=== PATIENT | female | born 1985 | race African-American/Black ===

== ENCOUNTER → 2016-06-06 | Outpatient (CLI) | payer OTHER, SELFPAY ==
--- NOTE | 2016-06-06 16:42 | CR ---
EXAMINATION: Lumbar spine HISTORY: Pain COMPARISON: None TECHNIQUE: AP and lateral views FINDINGS: The lumbar spinal alignment is normal. The vertebral body heights and disc spaces appear w ell-maintained. There is no fracture or dislocation. The SI joints are symmetric. Bone mineralizatio n is normal. IMPRESSION: Grossly unremarkable lumbar spine.
== END ==
LOC: MW.CHRC 15:02
PROVIDERS: ATTEND Family Medicine
DX: M54.5 Low back pain (principal)
CPT/HCPCS: 72100; 72100-26

== ENCOUNTER 2016-06-17 16:12 | Emergency (ER) | payer SELFPAY ==
[2016-06-17 16:48] VITALS: BP 124/83
== END 2016-06-17 16:50 | disposition left against medical advice (07) ==
LOC: MW.ED 16:12
DX: Z53.21 Procedure and treatment not carried out due to patient leaving prior to being seen by health care provider (principal)

== ENCOUNTER → 2016-06-19 | Outpatient (CLI) | payer OTHER, SELFPAY | END | disposition home or self-care (01) | LOC: MW.CHFP 09:17 | PROVIDERS: ATTEND Physician Assistant | DX: R76.11 Nonspecific reaction to tuberculin skin test without active tuberculosis (principal); T50.A95A Adverse effect of other bacterial vaccines, initial encounter | CPT/HCPCS: 36415; 86480 ==

== ENCOUNTER → 2016-06-30 | Outpatient (CLI) | payer OTHER, SELFPAY | LOC: MW.CHFP 14:15 | PROVIDERS: ATTEND Physician Assistant | DX: R76.11 Nonspecific reaction to tuberculin skin test without active tuberculosis (principal) | CPT/HCPCS: 36415; 84450; 84460 ==

== ENCOUNTER 2017-10-01 05:43 | Inpatient (IN) | payer OTHER ==
[2017-10-01] MEDS ORDERED: Misoprostol 200 MCG Tab PO PRN (06:25)
[2017-10-01] MEDS ORDERED: Water For Irrigation,Sterile 1,000 ML Container IRR PRN (06:25)
[2017-10-01] MEDS ORDERED: Methylergonovine 0.2 MG/1 ML Amp IM PRN (06:25)
[2017-10-01] MEDS ORDERED: Nalbuphine 10 MG/1 ML Vial IVPUSH PRN (06:25)
[2017-10-01] MEDS ORDERED: Carboprost Tromethamine 250 MCG/1 ML Amp IM PRN (06:25)
[2017-10-01] MEDS ORDERED: Lidocaine 1% 50 ML MDV INJECT PRN (06:25)
[2017-10-01] MEDS ORDERED: Tranexamic Acid 1,000 MG in Sodium Chloride 0.9% 100 ML IV PRN (06:25)
[2017-10-01] MEDS ORDERED: Sodium Chloride 0.9% 10 ML Syringe FLUSH PRN (06:25)
[2017-10-01] MEDS ORDERED: Butorphanol 1 MG/ML SDV IVPUSH PRN (06:25)
[2017-10-01] MEDS ORDERED: Sodium Chloride 0.9% 2.5 ML Syringe FLUSH PRN (06:25)
[2017-10-01] MEDS ORDERED: Oxytocin/0.9 % Sodium Chloride 30 UNIT/500 ML BAG IV SCH ×2 (06:30→13:30)
--- NOTE | 2017-10-01 08:46 | PCM.LDHP ---
L&D History of Present Illness - General Date of Service: 10/01/17 Admit Problem/Dx: Patient Status Order with Admit Dx/Problem 10/01/17 05:51 Patient Status [ADT] Routine 10/01/17 06:26 Patient Status [ADT] Routine Admission Diagnosis/Problem Admission Diagnosis/Problem 10/01/17 08:40 31yo EDC 09/26/2017 40 5/7wks O+, RI, GBS neg. SROM clear this am 0200. Source of Information: Patient History Limitations: Reports: No Limitations - History of Present Illness Improves with: Reports: None Worsens with: Reports: None Associated Symptoms: Reports: N - Related Data Allergies/Adverse Reactions: Allergies Allergy/AdvReac Type Severity Reaction Status Date / Time No Known Allergies Allergy Verified 10/01/17 06:11 Home Medications: Home Meds PNV95/Ferrous Fumarate/FA [Prenavite Tablet] 1 each PO DAILY 07/25/17 [History] Past Medical History HEENT History: Reports: None Cardiovascular History: Reports: Angina, Other (See Below) Other Cardiovascular History: atypical angina Respiratory History: Reports: TB, Other (See Below) Other Respiratory History: latent TB; patient states her TB test was negative 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: - Infectious Disease History Infectious Disease History: Reports: TB, Other (See Below) Other Infectious Disease History: Latent TB noted on patient's chart; when asked patient states her TB test was negative - Past Surgical History HEENT Surgical History: Reports: Oral Surgery, Other (See Below) Other HEENT Surgeries/Procedures: wisdom teeth extraction Cardiovascular Surgical History: Reports: None Respiratory Surgical History: Reports: None Social & Family History - Family History Cardiac: Reports: Hypertension OBGYN: Reports: Endocrine/Metabolic: Reports: Diabetes, type II - Tobacco Use Smoking Status *Q: Never Smoker - Caffeine Use Caffeine Use: Reports: Coffee, Tea - Recreational Drug Use Recreational Drug Use: No H&P Review of Systems - Review of Systems: Review Of Systems: See Below General: Reports: No Symptoms HEENT: Reports: No Symptoms Pulmonary: Reports: No Symptoms Cardiovascular: Reports: No Symptoms Gastrointestinal: Reports: No Symptoms Genitourinary: Reports: No Symptoms Musculoskeletal: Reports: No Symptoms Skin: Reports: No Symptoms Psychiatric: Reports: No Symptoms Neurological: Reports: No Symptoms Hematologic/Lymphatic: Reports: No Symptoms Immunologic: Reports: No Symptoms L&D Exam - Exam Exam: See Below - Vital Signs Weight: 72.121 kg - OB Specific Contraction Intensity: Mild Movement: Active Heart Tones: Present Heart Rate (FHR) Variability: Moderate (6-25 bmp) Presentation: Vertex Estimated Weight: 3100 - Exam General: Alert, Cooperative HEENT: Hearing Intact Lungs: Clear to Auscultation, Normal Respiratory Effort Cardiovascular: Regular Rate, Regular Rhythm, Normal S1, Normal S2 GI/Abdominal Exam: Soft, Non-Tender Rectal Exam: Deferred Genitourinary: Cervical dilitation Back Exam: Normal Inspection, Full Range of Motion Extremities: Normal Inspection, Normal Range of Motion, Non-Tender, No Pedal Edema, Normal Capillary Refill Skin: Warm, Dry, Intact Neurological: Cranial Nerves Intact, Reflexes Equal Bilateral, Strength Equal Bilateral, Normal Gait, Normal Speech, Normal Tone Psychiatric: Alert, Normal Affect, Normal Mood - Patient Data Lab Results Last 24 hrs: Laboratory Results - last 24 hr 10/01/17 10/01/17 10/01/17 Range/Units 06:00 06:45 06:45 WBC 14.03 H (4.0-11.0) K/uL RBC 3.44 L (4.30-5.90) M/uL Hgb 10.0 L (12.0-16.0) g/dL Hct 30.3 L (36.0-46.0) % MCV 88.1 (80.0-98.0) fL MCH 29.1 (27.0-32.0) pg MCHC 33.0 (31.0-37.0) g/dL RDW Std Deviation 42.6 (28.0-62.0) fl RDW Coeff of Clara 13 (11.0-15.0) % Plt Count 112 L (150-400) K/uL MPV 11.30 (7.40-12.00) fL Nucleated RBC % 0.2 /100WBC Nucleated RBCs # 0 K/uL Membrane Rupture POSITIVE Blood Type O POSITIVE Antibody Screen NEGATIVE Result Diagrams: 10/01/17 06:45 - Problem List (1) Supervision of normal IUP (intrauterine ) in primigravida SNOMED Code(s): 23059788, 978737588, 771195379, 988856982 ICD Code: Z34.00 - ENCNTR FOR SUPRVSN OF NORMAL FIRST , UNSP TRIMESTER Status: Acute Priority: High Current Visit: Yes Qualifiers: Trimester: third trimester Qualified Code(s): Z34.03 - Encounter for supervision of normal first , third trimester Problem List Initiated/Reviewed/Updated: Yes Orders Last 24hrs: Active Orders 24 hr Category Date Time Status Patient Status [ADT] Routine ADT 10/01/17 06:26 Active Heart Tones [RC] CONTINUOUS Care 10/01/17 06:26 Active Non Stress Test [RC] PER UNIT ROUTINE Care 10/01/17 05:51 Active May Shower [RC] ASDIRECTED Care 10/01/17 06:26 Active Notify Provider [RC] PRN Care 10/01/17 06:26 Active Up ad Staci [RC] ASDIRECTED Care 10/01/17 05:51 Active Vaginal Exam [RC] Click to Edit Care 10/01/17 05:51 Active Vital Signs [RC] PER UNIT ROUTINE Care 10/01/17 05:51 Active Regular Diet [DIET] Diet 10/01/17 Breakfast Active Butorphanol [Stadol] Med 10/01/17 06:25 Active 1 mg IVPUSH Q1H PRN Carboprost Tromethamine [Hemabate DS] Med 10/01/17 06:25 Active 250 mcg IM ASDIRECTED PRN Lactated Ringers [Ringers, Lactated] 1,000 ml Med 10/01/17 06:30 Active IV ASDIRECTED Lidocaine 1% [Xylocaine 1%] Med 10/01/17 06:25 Active 50 ml INJECT .ONCE PRN Methylergonovine [Methergine] Med 10/01/17 06:25 Active 0.2 mg IM ASDIRECTED PRN Misoprostol [Cytotec] Med 10/01/17 06:25 Active 200 mcg PO .ONCE PRN Nalbuphine [Nubain] Med 10/01/17 07:30 Active 10 mg IVPUSH Q1H PRN Oxytocin/0.9 % Sodium Chloride [Oxytocin 30 Unit/500 ML Med 10/01/17 06:30 Active -NS] 30 unit in 500 ml IV TITRATE Sodium Chloride 0.9% [Saline Flush] Med 10/01/17 06:25 Active 10 ml FLUSH ASDIRECTED PRN Sodium Chloride 0.9% [Saline Flush] Med 10/01/17 06:25 Active 2.5 ml FLUSH ASDIRECTED PRN Tranexamic Acid [Cyklokapron] 1,000 mg Med 10/01/17 06:25 Active Sodium Chloride 0.9% [Normal Saline] 100 ml IV ONETIME Water For Irrigation,Sterile [Sterile Water for Med 10/01/17 06:25 Active Irrigation] 1,000 ml IRR ASDIRECTED PRN Scalp Electrode [WOMSER] Per Unit Routine Oth 10/01/17 06:26 Ordered Peripheral IV Insertion Adult [OM.PC] Routine Oth 10/01/17 06:26 Ordered Resuscitation Status Routine Resus Stat 10/01/17 05:51 Ordered Medication Orders Butorphanol Tartrate (Stadol) 1 mg IVPUSH Q1H PRN PRN Reason: Pain Carboprost Tromethamine (Hemabate Ds) 250 mcg IM ASDIRECTED PRN PRN Reason: Post Hemorrhage Tranexamic Acid 1,000 mg/ (Sodium Chloride) 110 mls @ 660 mls/hr IV ONETIME PRN PRN Reason: Bleeding Lactated Ringer's (Ringers, Lactated) 1,000 mls @ 150 mls/hr IV ASDIRECTED LO Oxytocin/Sodium Chloride (Oxytocin 30 Unit/500 Ml-Ns) 30 unit in 500 mls @ 999 mls/hr IV TITRATE LO Lidocaine HCl (Xylocaine 1%) 50 ml INJECT .ONCE PRN PRN Reason: Laceration repair Methylergonovine Maleate (Methergine) 0.2 mg IM ASDIRECTED PRN PRN Reason: Post Hemorrhage Misoprostol (Cytotec) 200 mcg PO .ONCE PRN PRN Reason: Post Hemorrhage Nalbuphine HCl (Nubain) 10 mg IVPUSH Q1H PRN PRN Reason: Pain (severe 7-10) Sodium Chloride (Saline Flush) 10 ml FLUSH ASDIRECTED PRN PRN Reason: Keep Vein Open Sodium Chloride (Saline Flush) 2.5 ml FLUSH ASDIRECTED PRN PRN Reason: Keep Vein Open Sterile Water (Sterile Water For Irrigation) 1,000 ml IRR ASDIRECTED PRN PRN Reason: delivery Assessment/Plan Comment:: Labor A: 31yo EDC 09/26/2017 40 5/7wks O+, RI, GBS neg. SROM clear this am 0200. VSS, AF, Reactive NST. P: Pt walking and will be rechecked in a few hours or prn, Will start pitocin if not fernanda and making cervical change. GBS neg. Dr pulliam updated on pt status.
[2017-10-01] MEDS ORDERED: Misoprostol 25 MCG (1/4 of 100 MCG) Tab VAG PRN (13:16)
[2017-10-01] MEDS ORDERED: Terbutaline 1 MG/ML SDV SUBCUT PRN (13:16)
[2017-10-01] MEDS ORDERED: Misoprostol 25 MCG (1/4 of 100 MCG) Tab VAG SCH (13:30)
[2017-10-01] MEDS: Lactated Ringers 1,000 ML IV SCH ×2 (14:17→19:53)
[2017-10-02] MEDS: Lactated Ringers 1,000 ML IV SCH ×3 (03:15→10:02)
[2017-10-02] MEDS: Nalbuphine 10 MG/ML 10 ML MDV IVPUSH PRN ×2 (03:18→07:30)
[2017-10-02] MEDS ORDERED: Ampicillin 2 GM in Sodium Chloride 0.9% 100 ML IV ONE (04:39)
[2017-10-02] MEDS ORDERED: Ampicillin 1 GM in Sodium Chloride 0.9% 50 ML IV SCH (08:45)
--- NOTE | 2017-10-02 10:00 | PCM.PREANE ---
Preanesthetic Assessment - Anesthesia/Transfusion/Family Hx Anesthesia History: Prior Anesthesia Without Reaction Family History of Anesthesia Reaction: No Transfusion History: No Prior Transfusion(s) - Review of Systems General: No Symptoms Pulmonary: No Symptoms Cardiovascular: No Symptoms Gastrointestinal: No Symptoms, Nausea Other: Reports: None - Physical Assessment Height: 1.55 m Weight: 72.121 kg ASA Class: 2 Mental Status: Alert & Oriented x3 Dentition: Reports: Normal Dentition - Lab Values: Laboratory Last Values WBC 14.03 K/uL (4.0-11.0) H 10/01/17 06:45 RBC 3.44 M/uL (4.30-5.90) L 10/01/17 06:45 Hgb 10.0 g/dL (12.0-16.0) L 10/01/17 06:45 Hct 30.3 % (36.0-46.0) L 10/01/17 06:45 MCV 88.1 fL (80.0-98.0) 10/01/17 06:45 MCH 29.1 pg (27.0-32.0) 10/01/17 06:45 MCHC 33.0 g/dL (31.0-37.0) 10/01/17 06:45 RDW Std Deviation 42.6 fl (28.0-62.0) 10/01/17 06:45 RDW Coeff of Clara 13 % (11.0-15.0) 10/01/17 06:45 Plt Count 112 K/uL (150-400) L 10/01/17 06:45 MPV 11.30 fL (7.40-12.00) 10/01/17 06:45 Nucleated RBC % 0.2 /100WBC 10/01/17 06:45 Nucleated RBCs # 0 K/uL 10/01/17 06:45 Membrane Rupture POSITIVE 10/01/17 06:00 Blood Type O POSITIVE 10/01/17 06:45 Antibody Screen NEGATIVE 10/01/17 06:45 - Allergies Allergies/Adverse Reactions: Allergies Allergy/AdvReac Type Severity Reaction Status Date / Time No Known Allergies Allergy Verified 10/01/17 06:11 - Acknowledgements Anesthesia Type Planned: Epidural Pt an Appropriate Candidate for the Planned Anesthesia: Yes Alternatives and Risks of Anesthesia Discussed w Pt/Guardian: Yes Pt/Guardian Understands and Agrees with Anesthesia Plan: Yes PreAnesthesia Questionnaire HEENT History: Reports: None Cardiovascular History: Reports: Angina, Other (See Below) Other Cardiovascular History: atypical angina Respiratory History: Reports: TB, Other (See Below) Other Respiratory History: latent TB; patient states her TB test was negative 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: - Infectious Disease History Infectious Disease History: Reports: TB, Other (See Below) Other Infectious Disease History: Latent TB noted on patient's chart; when asked patient states her TB test was negative - Past Surgical History HEENT Surgical History: Reports: Oral Surgery, Other (See Below) Other HEENT Surgeries/Procedures: wisdom teeth extraction Cardiovascular Surgical History: Reports: None Respiratory Surgical History: Reports: None - SUBSTANCE USE Smoking Status *Q: Never Smoker Recreational Drug Use History: No - HOME MEDS Home Medications: Home Meds PNV95/Ferrous Fumarate/FA [Prenavite Tablet] 1 each PO DAILY 07/25/17 [History] - CURRENT (IN HOUSE) MEDS Current Meds: Current Medications Butorphanol Tartrate (Stadol) 1 mg IVPUSH Q1H PRN PRN Reason: Pain Carboprost Tromethamine (Hemabate Ds) 250 mcg IM ASDIRECTED PRN PRN Reason: Post Hemorrhage Tranexamic Acid 1,000 mg/ (Sodium Chloride) 110 mls @ 660 mls/hr IV ONETIME PRN PRN Reason: Bleeding Lactated Ringer's (Ringers, Lactated) 1,000 mls @ 150 mls/hr IV ASDIRECTED LO Last Admin: 10/02/17 09:03 Dose: 999 mls/hr Oxytocin/Sodium Chloride (Oxytocin 30 Unit/500 Ml-Ns) 30 unit in 500 mls @ 999 mls/hr IV TITRATE LO Oxytocin/Sodium Chloride (Oxytocin 30 Unit/500 Ml-Ns) 30 unit in 500 mls @ 2 mls/hr IV TITRATE LO; Protocol Last Titration: 10/01/17 22:58 Dose: 20 munits/min, 20 mls/hr Ampicillin Sodium 1 gm/ Sodium (Chloride) 50 mls @ 100 mls/hr IV Q4H LO Last Admin: 10/02/17 09:12 Dose: 100 mls/hr Lidocaine HCl (Xylocaine 1%) 50 ml INJECT .ONCE PRN PRN Reason: Laceration repair Methylergonovine Maleate (Methergine) 0.2 mg IM ASDIRECTED PRN PRN Reason: Post Hemorrhage Misoprostol (Cytotec) 200 mcg PO .ONCE PRN PRN Reason: Post Hemorrhage Misoprostol (Cytotec) 25 mcg VAG .ONCE LO Misoprostol (Cytotec) 25 mcg VAG Q4H PRN PRN Reason: Cervical Ripening Nalbuphine HCl (Nubain) 10 mg IVPUSH Q1H PRN PRN Reason: Pain (severe 7-10) Last Admin: 10/02/17 07:30 Dose: 10 mg Sodium Chloride (Saline Flush) 10 ml FLUSH ASDIRECTED PRN PRN Reason: Keep Vein Open Sodium Chloride (Saline Flush) 2.5 ml FLUSH ASDIRECTED PRN PRN Reason: Keep Vein Open Sterile Water (Sterile Water For Irrigation) 1,000 ml IRR ASDIRECTED PRN PRN Reason: delivery Terbutaline Sulfate (Brethine) 0.25 mg SUBCUT ASDIRECTED PRN PRN Reason: Tacysystole Discontinued Medications Ampicillin Sodium 2 gm/ Sodium (Chloride) 100 mls @ 200 mls/hr IV ONETIME ONE Stop: 10/02/17 05:08 Last Admin: 10/02/17 04:56 Dose: 200 mls/hr Fentanyl/Bupivacaine HCl (Seedazrx-Xpspl-Ps 2 Mcg/Ml-0.125%) Confirm Administered Dose 100 mls @ as directed EP .STK-MED ONE Stop: 10/02/17 09:07 Nalbuphine HCl (Nubain) 10 mg IVPUSH Q1H PRN PRN Reason: Pain (severe 7-10)
[2017-10-02] MEDS ORDERED: Benzocaine/Menthol 20%-0.5% Spray 78 GM Cannister TOP PRN (12:02)
[2017-10-02] MEDS ORDERED: Ibuprofen 400 MG Tab PO PRN (12:02)
[2017-10-02] MEDS ORDERED: Docusate Sodium 100 MG Cap PO PRN (12:02)
[2017-10-02] MEDS ORDERED: Bisacodyl 10 MG Supp RECTAL PRN (12:02)
[2017-10-02] MEDS ORDERED: Acetaminophen 500 MG Tab PO PRN ×2 (12:02)
[2017-10-02] MEDS ORDERED: Lanolin 100% Cream 7 GM Tube TOP PRN (12:02)
[2017-10-02] MEDS ORDERED: oxyCODONE 5 MG Tab PO PRN (12:02)
[2017-10-02] MEDS ORDERED: Witch Hazel Medicated Pads 40/Jar TOP PRN (12:02)
--- NOTE | 2017-10-02 12:10 | PCM.DEL ---
L & D Note - General Info Date of Service: 10/02/17 Mother's Due Date: 09/26/17 - Delivery Note Labor: Spontaneous Delivery Outcome: Livebirth Infant Delivery Method: Spontaneous Vaginal Delivery-Single Infant Delivery Mode: Spontaneous Presentation: Vertex Nuchal Cord: Present Anesthesia Type: Epidural Amniotic Fluid Description: Clear Episiotomy Type: None Laceration: 1st Degree (bilat side wall) Suture type: Vicryl Suture size: 3-0 Placenta: Intact, Spontaneous Cord: 3 Vessels Estimated Blood Loss: 200 Resuscitation Needed: No Score 1 min: 9 Score 5 min: 9 Second Stage Interventions: Reports: Pushing, Pulls Own Legs Back Delivery Comments (Free Text/Narrative):: Dr Coleman Resident assisted with delivery. of viable girl. Head delivered with good pushing, nuchal x1 noted and baby delivered through, shoulders and body followed easily. Infant to mothers abdomen with RN at for evaluation. Spont cry. Delayed cord clamping. Pitocin to IVF, Cord clamped x2 and cut by FOB. Cord blood collected. Placenta delivered grossly intact. Inspection noted bilat sidewall lac that were repaired with 3-0 satinder, homeostasis obtained. Bimanual normal. Infant APGARS 9/9, Wt: 6lb 3oz, EBL 200cc. 1st deg sidewall lac with repair. Mother and baby left in stable condition. Induction Criteria - Augmentation Estimated Pelvis: Reports: Adequate Weight Estimated:: Reports: AGA Reassuring Monitoring Strip: Yes Absence of Tachy Systole: Yes - General Info Date of Service: 10/02/17 Admission Dx/Problem (Free Text): Patient Status Order with Admit Dx/Problem 10/01/17 05:51 Patient Status [ADT] Routine 10/01/17 06:26 Patient Status [ADT] Routine Admission Diagnosis/Problem Admission Diagnosis/Problem 10/01/17 08:40 31yo EDC 09/26/2017 40 5/7wks O+, RI, GBS neg. SROM clear this am 0200. Functional Status: Reports: Pain Controlled - Review of Systems General: Reports: No Symptoms HEENT: Reports: No Symptoms Pulmonary: Reports: No Symptoms Cardiovascular: Reports: No Symptoms Gastrointestinal: Reports: No Symptoms Genitourinary: Reports: No Symptoms Musculoskeletal: Reports: No Symptoms Skin: Reports: No Symptoms Neurological: Reports: No Symptoms Psychiatric: Reports: No Symptoms - Patient Data Weight - Most Recent: 72.121 kg Med Orders - Current: Current Medications Acetaminophen (Tylenol Extra Strength) 500 mg PO Q4H PRN PRN Reason: Pain Acetaminophen (Tylenol Extra Strength) 1,000 mg PO Q4H PRN PRN Reason: Pain Benzocaine/Menthol (Dermoplast Pain Relief 20%-0.5% Kipling) 78 gm TOP ASDIRECTED PRN PRN Reason: Perineal Comfort Measure Bisacodyl (Dulcolax) 10 mg RECTAL .ONCE PRN PRN Reason: Constipation Docusate Sodium (Colace) 100 mg PO BID PRN PRN Reason: Constipation Emollient Ointment (Lansinoh Hpa) 0 gm TOP ASDIRECTED PRN PRN Reason: Sore Nipples Ibuprofen (Motrin) 400 mg PO Q4H PRN PRN Reason: Pain Ibuprofen (Motrin) 800 mg PO Q6H PRN PRN Reason: Pain Oxycodone HCl (Oxycodone) 5 mg PO Q2H PRN PRN Reason: Pain Witch Nadiya (Tucks) 1 pad TOP ASDIRECTED PRN PRN Reason: comfort care Discontinued Medications Butorphanol Tartrate (Stadol) 1 mg IVPUSH Q1H PRN PRN Reason: Pain Carboprost Tromethamine (Hemabate Ds) 250 mcg IM ASDIRECTED PRN PRN Reason: Post Hemorrhage Tranexamic Acid 1,000 mg/ (Sodium Chloride) 110 mls @ 660 mls/hr IV ONETIME PRN PRN Reason: Bleeding Lactated Ringer's (Ringers, Lactated) 1,000 mls @ 150 mls/hr IV ASDIRECTED [facility] Last Admin: 10/02/17 10:02 Dose: 150 mls/hr Oxytocin/Sodium Chloride (Oxytocin 30 Unit/500 Ml-Ns) 30 unit in 500 mls @ 999 mls/hr IV TITRATE LO Oxytocin/Sodium Chloride (Oxytocin 30 Unit/500 Ml-Ns) 30 unit in 500 mls @ 2 mls/hr IV TITRATE [facility]; Protocol Last Titration: 10/01/17 22:58 Dose: 20 munits/min, 20 mls/hr Ampicillin Sodium 2 gm/ Sodium (Chloride) 100 mls @ 200 mls/hr IV ONETIME ONE Stop: 10/02/17 05:08 Last Admin: 10/02/17 04:56 Dose: 200 mls/hr Ampicillin Sodium 1 gm/ Sodium (Chloride) 50 mls @ 100 mls/hr IV Q4H [facility] Last Admin: 10/02/17 09:12 Dose: 100 mls/hr Fentanyl/Bupivacaine HCl (Dtanfhfy-Idmle-Gd 2 Mcg/Ml-0.125%) Confirm Administered Dose 100 mls @ as directed ISAIAS .K-MED ONE Stop: 10/02/17 09:07 Lidocaine HCl (Xylocaine 1%) 50 ml INJECT .ONCE PRN PRN Reason: Laceration repair Methylergonovine Maleate (Methergine) 0.2 mg IM ASDIRECTED PRN PRN Reason: Post Hemorrhage Misoprostol (Cytotec) 200 mcg PO .ONCE PRN PRN Reason: Post Hemorrhage Misoprostol (Cytotec) 25 mcg VAG .ONCE LO Misoprostol (Cytotec) 25 mcg VAG Q4H PRN PRN Reason: Cervical Ripening Nalbuphine HCl (Nubain) 10 mg IVPUSH Q1H PRN PRN Reason: Pain (severe 7-10) Nalbuphine HCl (Nubain) 10 mg IVPUSH Q1H PRN PRN Reason: Pain (severe 7-10) Last Admin: 10/02/17 07:30 Dose: 10 mg Sodium Chloride (Saline Flush) 10 ml FLUSH ASDIRECTED PRN PRN Reason: Keep Vein Open Sodium Chloride (Saline Flush) 2.5 ml FLUSH ASDIRECTED PRN PRN Reason: Keep Vein Open Sterile Water (Sterile Water For Irrigation) 1,000 ml IRR ASDIRECTED PRN PRN Reason: delivery Terbutaline Sulfate (Brethine) 0.25 mg SUBCUT ASDIRECTED PRN PRN Reason: Tacysystole - Exam General: Alert, Oriented, Cooperative, No Acute Distress Lungs: Normal Respiratory Effort GI/Abdominal Exam: Soft (Female) Exam: Normal External Exam, Normal Bimanual Exam, Vaginal Bleeding, Vaginal Lesions Back Exam: Normal Inspection, Full Range of Motion Extremities: Normal Inspection, Normal Range of Motion, Non-Tender, No Pedal Edema, Normal Capillary Refill Skin: Warm, Dry, Intact Wound/Incisions: Healing Well Neurological: No New Focal Deficit, Normal Speech, Normal Tone Psy/Mental Status: Alert, Normal Affect, Normal Mood - Problem List & Annotations (1) Supervision of normal IUP (intrauterine ) in primigravida SNOMED Code(s): 63613877, 928886250, 633626538, 408524233 Code(s): Z34.00 - ENCNTR FOR SUPRVSN OF NORMAL FIRST , UNSP TRIMESTER Status: Acute Priority: High Current Visit: Yes Qualifiers: Trimester: third trimester Qualified Code(s): Z34.03 - Encounter for supervision of normal first , third trimester (2) (normal spontaneous vaginal delivery) SNOMED Code(s): 25132137 Code(s): O80 - ENCOUNTER FOR FULL-TERM UNCOMPLICATED DELIVERY Status: Acute Priority: High Current Visit: Yes - Problem List Review Problem List Initiated/Reviewed/Updated: Yes - My Orders Last 24 Hours: My Active Orders 10/01/17 13:16 Oxygen Therapy [RC] ASDIRECTED Vital Signs [RC] PER UNIT ROUTINE 10/02/17 12:02 May Shower [RC] ASDIRECTED Up ad Staci [RC] ASDIRECTED Vital Signs [RC] PER UNIT ROUTINE Acetaminophen [Tylenol Extra Strength] 1,000 mg PO Q4H PRN Acetaminophen [Tylenol Extra Strength] 500 mg PO Q4H PRN Benzocaine/Menthol [Dermoplast Pain Relief 20%-0.5% Kipling] 78 gm TOP ASDIRECTED PRN Bisacodyl [Dulcolax] 10 mg RECTAL .ONCE PRN Docusate Sodium [Colace] 100 mg PO BID PRN Ibuprofen [Motrin] 400 mg PO Q4H PRN Ibuprofen [Motrin] 800 mg PO Q6H PRN Lanolin [Lansinoh HPA] See Dose Instructions TOP ASDIRECTED PRN Witch Nadiya [Tucks] 1 pad TOP ASDIRECTED PRN oxyCODONE 5 mg PO Q2H PRN Assess Lochia [WOMSER] Per Unit Routine Assess Uterine Involution [WOMSER] Per Unit Routine Peripheral IV Discontinue [OM.PC] Routine Resuscitation Status Routine 10/02/17 12:03 Patient Status [ADT] Routine 10/02/17 Lunch Regular Diet [DIET] - Plan Plan:: Labor A: 31yo EDC 09/26/2017 40 5/7wks O+, RI, GBS neg. SROM clear this am 0200. VSS, AF, Reactive NST. P: Pt walking and will be rechecked in a few hours or prn, Will start pitocin if not fernanda and making cervical change. GBS neg. Dr pulliam updated on pt status. Delivery A: of viable female APGARS 9/9, WT: 6lb 3oz. EBL 200cc, 1st deg bilat sidewall lac with repair. Mother and baby bonding well P: Routine pp plan of care
--- NOTE | 2017-10-02 13:05 | PCM48HPAN ---
Post Anesthesia Note - EVALUATION WITHIN 48HRS OF ANESTHETIC Vital Signs in Normal Range: Yes Patient Participated in Evaluation: Yes Respiratory Function Stable: Yes Airway Patent: Yes Cardiovascular Function Stable: Yes Hydration Status Stable: Yes Pain Control Satisfactory: Yes Nausea and Vomiting Control Satisfactory: Yes Mental Status Recovered: Yes - COMMENTS/OBSERVATIONS Free Text/Narrative:: Sitting up in bed. Denies any complaints.
[2017-10-02] MEDS: Ibuprofen 800 MG Tab PO PRN (21:01)
[2017-10-03] MEDS: Ibuprofen 800 MG Tab PO PRN (06:33)
[2017-10-03 08:13] VITALS: BP 106/68
--- NOTE | 2017-10-03 09:25 | PCM.DCSUM1 ---
Discharge Summary - Hospital Course Free Text/Narrative:: Discharge home with infant. Follow up in 6 weeks or sooner if needed. Descargar a casa con el rubi. Seguimiento en seis semanas o antes se es necesaro. Diagnosis: Stroke: No - Discharge Data Discharge Date: 10/03/17 Discharge Disposition: Home, Self-Care 01 Condition: Good - Discharge Diagnosis/Problem(s) (1) Supervision of normal IUP (intrauterine ) in primigravida SNOMED Code(s): 77483372, 239374802, 161875274, 637764123 ICD Code: Z34.00 - ENCNTR FOR SUPRVSN OF NORMAL FIRST , UNSP TRIMESTER Status: Acute Priority: High Current Visit: Yes Qualifiers: Trimester: third trimester Qualified Code(s): Z34.03 - Encounter for supervision of normal first , third trimester (2) (normal spontaneous vaginal delivery) SNOMED Code(s): 23812102 ICD Code: O80 - ENCOUNTER FOR FULL-TERM UNCOMPLICATED DELIVERY Status: Acute Priority: High Current Visit: Yes - Patient Instructions Diet: Usual Diet as Tolerated Activity: As Tolerated, No Strenuous Activities, Rest and Relax Today Driving: May Drive Today Showering/Bathing: May Shower Notify Provider of: Fever, Increased Pain, Swelling and Redness, Nausea and/or Vomiting Other/Special Instructions: Discharge home with . Follow up in 6 weeks or sooner if needed. Descargar a casa con el rubi. Seguimiento en seis semanas o antes se es necesaro. - Discharge Plan Home Medications: Home Meds PNV95/Ferrous Fumarate/FA [Prenavite Tablet] 1 each PO DAILY 07/25/17 [History] Referrals: [facility] [Outside] Wendy Turpin CNM [Mid-] - 11/12/17 1:30 pm - General Info Date of Service: 10/03/17 Admission Dx/Problem (Free Text: Patient Status Order with Admit Dx/Problem 10/01/17 05:51 Patient Status [ADT] Routine 10/01/17 06:26 Patient Status [ADT] Routine Admission Diagnosis/Problem Admission Diagnosis/Problem 10/01/17 08:40 31yo EDC 09/26/2017 40 5/7wks O+, RI, GBS neg. SROM clear this am 0200. Functional Status: Reports: Pain Controlled, Tolerating Diet, Ambulating, Urinating - Review of Systems General: Reports: No Symptoms HEENT: Reports: No Symptoms Pulmonary: Reports: No Symptoms Cardiovascular: Reports: No Symptoms Gastrointestinal: Reports: No Symptoms Genitourinary: Reports: No Symptoms Musculoskeletal: Reports: No Symptoms Skin: Reports: No Symptoms Neurological: Reports: No Symptoms Psychiatric: Reports: No Symptoms - Patient Data Vitals - Most Recent: Last Vital Signs Temp 36.4 C 10/03/17 08:00 Pulse 88 10/03/17 08:00 Resp 15 10/03/17 08:00 BP 106/68 10/03/17 08:00 Pulse Ox 99 10/03/17 08:00 Weight - Most Recent: 72.121 kg Med Orders - Current: Current Medications Acetaminophen (Tylenol Extra Strength) 500 mg PO Q4H PRN PRN Reason: Pain Acetaminophen (Tylenol Extra Strength) 1,000 mg PO Q4H PRN PRN Reason: Pain Last Admin: 10/02/17 17:27 Dose: 1,000 mg Benzocaine/Menthol (Dermoplast Pain Relief 20%-0.5% [place]) 78 gm TOP ASDIRECTED PRN PRN Reason: Perineal Comfort Measure Last Admin: 10/02/17 17:27 Dose: 1 canister Bisacodyl (Dulcolax) 10 mg RECTAL .ONCE PRN PRN Reason: Constipation Docusate Sodium (Colace) 100 mg PO BID PRN PRN Reason: Constipation Emollient Ointment (Lansinoh Hpa) 0 gm TOP ASDIRECTED PRN PRN Reason: Sore Nipples Last Admin: 10/02/17 18:19 Dose: 2 tube Ibuprofen (Motrin) 400 mg PO Q4H PRN PRN Reason: Pain Ibuprofen (Motrin) 800 mg PO Q6H PRN PRN Reason: Pain Last Admin: 10/03/17 06:33 Dose: 800 mg Oxycodone HCl (Oxycodone) 5 mg PO Q2H PRN PRN Reason: Pain Witch Nadiya (Tucks) 1 pad TOP ASDIRECTED PRN PRN Reason: comfort care Discontinued Medications Butorphanol Tartrate (Stadol) 1 mg IVPUSH Q1H PRN PRN Reason: Pain Carboprost Tromethamine (Hemabate Ds) 250 mcg IM ASDIRECTED PRN PRN Reason: Post Hemorrhage Tranexamic Acid 1,000 mg/ (Sodium Chloride) 110 mls @ 660 mls/hr IV ONETIME PRN PRN Reason: Bleeding Lactated Ringer's (Ringers, Lactated) 1,000 mls @ 150 mls/hr IV ASDIRECTED LO Last Admin: 10/02/17 10:02 Dose: 150 mls/hr Oxytocin/Sodium Chloride (Oxytocin 30 Unit/500 Ml-Ns) 30 unit in 500 mls @ 999 mls/hr IV TITRATE LO Oxytocin/Sodium Chloride (Oxytocin 30 Unit/500 Ml-Ns) 30 unit in 500 mls @ 2 mls/hr IV TITRATE LO; Protocol Last Titration: 10/01/17 22:58 Dose: 20 munits/min, 20 mls/hr Ampicillin Sodium 2 gm/ Sodium (Chloride) 100 mls @ 200 mls/hr IV ONETIME ONE Stop: 10/02/17 05:08 Last Admin: 10/02/17 04:56 Dose: 200 mls/hr Ampicillin Sodium 1 gm/ Sodium (Chloride) 50 mls @ 100 mls/hr IV Q4H [facility] Last Admin: 10/02/17 09:12 Dose: 100 mls/hr Fentanyl/Bupivacaine HCl (Rrkaobcl-Mrgom-Hm 2 Mcg/Ml-0.125%) Confirm Administered Dose 100 mls @ as directed EP .STK-MED ONE Stop: 10/02/17 09:07 Last Admin: 10/02/17 21:16 Dose: Not Given Lidocaine HCl (Xylocaine 1%) 50 ml INJECT .ONCE PRN PRN Reason: Laceration repair Methylergonovine Maleate (Methergine) 0.2 mg IM ASDIRECTED PRN PRN Reason: Post Hemorrhage Misoprostol (Cytotec) 200 mcg PO .ONCE PRN PRN Reason: Post Hemorrhage Misoprostol (Cytotec) 25 mcg VAG .ONCE LO Misoprostol (Cytotec) 25 mcg VAG Q4H PRN PRN Reason: Cervical Ripening Nalbuphine HCl (Nubain) 10 mg IVPUSH Q1H PRN PRN Reason: Pain (severe 7-10) Nalbuphine HCl (Nubain) 10 mg IVPUSH Q1H PRN PRN Reason: Pain (severe 7-10) Last Admin: 10/02/17 07:30 Dose: 10 mg Sodium Chloride (Saline Flush) 10 ml FLUSH ASDIRECTED PRN PRN Reason: Keep Vein Open Sodium Chloride (Saline Flush) 2.5 ml FLUSH ASDIRECTED PRN PRN Reason: Keep Vein Open Sterile Water (Sterile Water For Irrigation) 1,000 ml IRR ASDIRECTED PRN PRN Reason: delivery Terbutaline Sulfate (Brethine) 0.25 mg SUBCUT ASDIRECTED PRN PRN Reason: Tacysystole - Exam General: Reports: Alert, Oriented, Cooperative, No Acute Distress Lungs: Reports: Normal Respiratory Effort GI/Abdominal Exam: Soft, Non-Tender (Female) Exam: Vaginal Bleeding Rectal (Female) Exam: Deferred Back Exam: Reports: Normal Inspection, Full Range of Motion Extremities: Normal Inspection, Normal Range of Motion, Non-Tender, No Pedal Edema, Normal Capillary Refill Skin: Reports: Warm, Dry, Intact Wound/Incisions: Reports: Healing Well Neurological: Reports: No New Focal Deficit, Normal Gait, Normal Speech, Normal Tone, Strength Equal Bilateral Psy/Mental Status: Reports: Alert, Normal Affect, Normal Mood
== END 2017-10-03 14:45 | disposition home or self-care (01) | DRG 775 ==
LOC: MW.OBCHECK 05:43 → MW.OB 05:47 → MW.OBCHECK 06:26 → MW.OB 06:26 → OBSVTOIN 10-02 12:10 → MW.OB 10-02 17:40
PROVIDERS: ADMIT Obstetrics & Gynecology; ATTEND Obstetrics & Gynecology
PROC: 10E0XZZ Delivery of Products of Conception, External Approach (ICD-10-PCS; principal; 2017-10-02)
PROC: 0HQ9XZZ Repair Perineum Skin, External Approach (ICD-10-PCS; 2017-10-02)
DX: O42.02 Full-term premature rupture of membranes, onset of labor within 24 hours of rupture (principal); O70.0 First degree perineal laceration during delivery; Z3A.40 40 weeks gestation of pregnancy; Z37.0 Single live birth
CPT/HCPCS: 59025; 59409; 84112; 85027; 86850; 86900; 86901; A9270-GY; J0290; J2300; J2590; J7030; J7050; J7120